=== PATIENT | male | born 1970 | race African-American/Black ===

== ENCOUNTER 2020-02-18 08:30 | Inpatient (IN) | payer MEDICARE ==
[~2020-02-18] VITALS: Ht 175.3 cm; Wt 90.7 kg
[2020-02-18] MEDS ORDERED: SODIUM CHLORIDE 0.9% 1,000 ML IV ONE (08:50)
[2020-02-18] MEDS ORDERED: VANCOMYCIN 1 G PREMIX 200 ML IV SCH (10:00)
[2020-02-18] MEDS ORDERED: CEFTRIAXONE 2 G PREMIX 50 ML IV ONE (10:00)
[2020-02-18 10:01] LABS: PROTHROMBIN TIME 31.8 sec (9.6-11.0)
[2020-02-18 10:57] LABS: CLARITY URINE CLEAR (CLEAR); COLOR URINE YELLOW (YELLOW); KETONES URINE NEGATIVE (NEGATIVE); LEUKOCYTE ESTERASE URINE NEGATIVE (NEGATIVE); NITRITE URINE NEGATIVE (NEGATIVE); OCCULT BLOOD URINE 1+ (NEGATIVE); PH URINE 6.5 (4.5-8.0); PROTEIN URINE NEGATIVE (NEGATIVE); SPECIFIC GRAVITY URINE 1.013 (1.005-1.030)
[2020-02-18 11:11] LABS: *BARBITURATES SCREEN URINE NEGATIVE (NEGATIVE); *BENZODIAZEPINES SCREEN URINE PRESUMTIVE POSITIVE (NEGATIVE); PHENCYCLIDINE URINE SCREEN NEGATIVE (NEGATIVE)
[2020-02-18 11:12] LABS: CHLORIDE 107 mEq/L (98-107)
[2020-02-18 11:12] LABS: *AMPHETAMINES SCREEN URINE NEGATIVE (NEGATIVE); *COCAINE SCREEN URINE NEGATIVE (NEGATIVE); CANNABINOID URINE SCREEN NEGATIVE (NEGATIVE); METHADONE URINE SCREEN NEGATIVE (NEGATIVE); OPIATES URINE SCREEN NEGATIVE (NEGATIVE)
[2020-02-18 11:14] LABS: CREATINE KINASE 275 IU/L (39-308); ETHANOL BLOOD < 10 mg/dL
[2020-02-18] MEDS ORDERED: CALCIUM GLUCONATE 100MG/ML 10ML VIAL IV ONE (12:00)
[2020-02-18 12:16] LABS: BASOPHILS % 0.1 % (0.0-2.0); HEMOGLOBIN. 16.1 g/dL (14.0-18.0); LYMPHOCYTES % 7.2 % (20.0-50.0); MEAN CORPUSCULAR HEMOGLOBIN 30.8 pg (28.0-32.0); MEAN CORPUSCULAR VOLUME 91.8 fL (80.0-94.0); MEAN PLATELET VOLUME 9.4 fl (7.4-10.4); MONOCYTES % 9.1 % (2.0-8.0); NEUTROPHILS % 83.6 % (40.0-76.0); PLATELET 224 x1000/uL (130-400); RED BLOOD CELL COUNT 5.23 mill/uL (4.7-6.1)
[2020-02-18] MEDS ORDERED: AZITHROMYCIN 500 MG in DEXT 5% WATER 250 ML IV SCH (14:15)
[2020-02-18] MEDS ORDERED: IPRATROPIUM/ALBUTEROL 0.5-3(2.5)MG/3ML NEB HHN PRN (17:45)
[2020-02-18] MEDS ORDERED: HYDROCODONE/ACETAMINOPHEN 5/325MG TABLET PO PRN (17:45)
[2020-02-18] MEDS ORDERED: CLONIDINE 0.1MG TABLET PO PRN (17:45)
[2020-02-18] MEDS ORDERED: SODIUM CHLORIDE 0.9% 1000ML BAG (SEPSIS BOLUS) IV NR (17:45)
[2020-02-18] MEDS ORDERED: GUAIFENESIN 200MG/10ML SUGAR FREE UDC PO PRN (17:45)
[2020-02-18] MEDS ORDERED: DOCUSATE SODIUM 100MG CAPSULE PO PRN (17:45)
[2020-02-18] MEDS ORDERED: ONDANSETRON HCL 4MG/2ML INJ IV PRN (17:45)
[2020-02-18] MEDS ORDERED: ACETAMINOPHEN 325MG TABLET PO PRN (17:45)
[2020-02-18] MEDS: SODIUM CHLORIDE 0.9% 1,000 ML IV SCH (18:30)
[2020-02-18] MEDS ORDERED: PIPERACILLIN/TAZ 3.375G PREMIX 50 ML IV SCH (18:30)
[2020-02-18 18:38] LABS: BG BASE EXCESS -2.2 mmol/L (-2.0-2.0); BG CARBOXYHEMOGLOBIN 0.4 % (0.5-1.5); BG DEOXYHEMOGLOBIN 4.4 % (0.0-5.0); BG FRACTION INSPIRED OXYGEN 21; BG METHEMOGLOBIN 0.3 % (0.0-1.5); BG OXYGEN SATURATION 95.6 % (92.0-98.5); BG OXYHEMOGLOBIN 94.9 % (94.0-97.0); BG PCO2 32.2 mmHg (35.0-45.0); BG PH 7.433 (7.350-7.450); BG PO2 73.4 mmHg (75.0-100.0); BG SAMPLE SITE LEFT RADIAL; BG TOTAL HEMOGLOBIN 14.6 g/dL (12.0-18.0); BG VENT MODE ROOM AIR
[2020-02-18] MEDS ORDERED: THIAMINE HCL 100 MG in SODIUM CHLORIDE 0.9% 49 ML IV NR (20:00)
[2020-02-18 20:33] LABS: PROTHROMBIN TIME 11.3 sec (9.6-11.0)
[2020-02-18 20:41] LABS: PHOSPHORUS 2.6 mg/dL (2.5-4.9)
[2020-02-18 20:42] LABS: T4 FREE 0.9 ng/dL (0.76-1.46)
[2020-02-18 20:44] LABS: BETA HYDROXYBUTYRATE 0.1 mMol/L (0.0-0.3)
[2020-02-18 21:04] LABS: VITAMIN B12 SERUM 401 pg/mL (211-911)
[2020-02-18 21:13] LABS: HEPATITIS B SURFACE ANTIGEN NEGATIVE
[2020-02-18 21:42] LABS: HEPATITIS A AB IGM NEGATIVE (NEGATIVE)
[2020-02-18] MEDS ORDERED: PIPERACILLIN/TAZOBACTAM 3.375 G/VIAL IV SCH (22:00)
[2020-02-18 23:45] LABS: CHLORIDE 110 mEq/L (98-107)
[2020-02-19] VITALS (13 sets, daily range): BP systolic 108–142; BP diastolic 60–100
[2020-02-19] MEDS: ZOLPIDEM TARTRATE 5MG TABLET PO PRN ×2 (01:30→22:10)
[2020-02-19] MEDS ORDERED: POTASSIUM CHLORIDE 20MEQ TABLET SR PO NR (02:45)
[2020-02-19] MEDS: SODIUM CHLORIDE 0.9% 1,000 ML IV SCH ×2 (03:31→14:06)
[2020-02-19] MEDS ORDERED: IOHEXOL-300 100 ML BOTTLE ONE (05:33)
[2020-02-19] MEDS: PIPERACILLIN/TAZOBACTAM 3.375 G in DEXT 5% WATER 100 ML IV SCH ×3 (05:37→21:00)
[2020-02-19 06:48] LABS: BASOPHILS % 0.2 % (0.0-2.0); EOSINOPHILS % 2.1 % (0.0-5.0); HEMATOCRIT. 39.3 % (42.0-52.0); HEMOGLOBIN. 13.7 g/dL (14.0-18.0); LYMPHOCYTES % 22.8 % (20.0-50.0); MEAN CORPUSCULAR HEMOGLOBIN 31.1 pg (28.0-32.0); MEAN CORPUSCULAR VOLUME 89.5 fL (80.0-94.0); MEAN PLATELET VOLUME 9.6 fl (7.4-10.4); MONOCYTES % 10.9 % (2.0-8.0); PLATELET 235 x1000/uL (130-400); RED BLOOD CELL COUNT 4.39 mill/uL (4.7-6.1); RED CELL DISTRIBUTION WIDTH 14.7 % (11.6-14.6)
[2020-02-19 07:11] LABS: CHLORIDE 108 mEq/L (98-107)
[2020-02-19] MEDS: HEPARIN 5000 UNITS/ML VIAL SUBCUT SCH ×2 (08:19→20:50)
[2020-02-19] MEDS: FAMOTIDINE 20MG TABLET PO SCH (20:50)
[2020-02-20] VITALS (11 sets, daily range): BP systolic 99–158; BP diastolic 63–96
[2020-02-20] MEDS: PIPERACILLIN/TAZOBACTAM 3.375 G in DEXT 5% WATER 100 ML IV SCH ×3 (05:07→22:53)
[2020-02-20 06:31] LABS: BASOPHILS % 0.1 % (0.0-2.0); HEMATOCRIT. 37.6 % (42.0-52.0); LYMPHOCYTES % 29.5 % (20.0-50.0); MEAN CORPUSCULAR HEMOGLOBIN 30.9 pg (28.0-32.0); MEAN CORPUSCULAR VOLUME 89.6 fL (80.0-94.0); MEAN PLATELET VOLUME 9.1 fl (7.4-10.4); NEUTROPHILS % 54.4 % (40.0-76.0); PLATELET 232 x1000/uL (130-400); RED CELL DISTRIBUTION WIDTH 14.5 % (11.6-14.6)
[2020-02-20 06:56] LABS: CHLORIDE 109 mEq/L (98-107)
[2020-02-20] MEDS: FAMOTIDINE 20MG TABLET PO SCH ×2 (08:43→23:20)
[2020-02-20] MEDS: HEPARIN 5000 UNITS/ML VIAL SUBCUT SCH ×2 (08:44→23:10)
[2020-02-20 09:09] LABS: HIV SCREEN 4G Non Reactive (Non Reactive)
[2020-02-20] MEDS: SODIUM CHLORIDE 0.9% 1,000 ML IV SCH ×3 (10:30→23:14)
[2020-02-20] MEDS: ZOLPIDEM TARTRATE 5MG TABLET PO PRN (22:54)
[2020-02-21] VITALS (10 sets, daily range): BP systolic 130–151; BP diastolic 78–103
[2020-02-21] MEDS: PIPERACILLIN/TAZOBACTAM 3.375 G in DEXT 5% WATER 100 ML IV SCH (05:52)
[2020-02-21] MEDS: SODIUM CHLORIDE 0.9% 1,000 ML IV SCH (05:53)
[2020-02-21] MEDS: FAMOTIDINE 20MG TABLET PO SCH (08:19)
[2020-02-21] MEDS: HEPARIN 5000 UNITS/ML VIAL SUBCUT SCH (08:20)
[2020-02-21 13:06] LABS: METHANOL BLOOD Negative % (0.000-0.010)
[2020-02-22 15:06] LABS: ETHYLENE GLYCOL <5 mg/dL (None detected)
== END 2020-02-21 13:53 | disposition home or self-care (01) | DRG 871 ==
LOC: EDBD 08:30 → ER 08:30 → 5EST 14:01 → EDBEDREQSVC 14:08 → ENRESERV 19:28 → CANRESERV 19:28 → EDBEDREQTM 21:28 → EDBEDREQSVC 21:28 → ENRESERV 23:33
PROVIDERS: ADMIT Internal Medicine; ATTEND Internal Medicine
PROC: 4A10X4Z Monitoring of Central Nervous Electrical Activity, External Approach (ICD-10-PCS; principal; 2020-02-20)
DX: A41.9 Sepsis, unspecified organism (principal); G92 Toxic encephalopathy; J69.0 Pneumonitis due to inhalation of food and vomit; D68.9 Coagulation defect, unspecified; E87.2 Acidosis; E87.6 Hypokalemia; E05.90 Thyrotoxicosis, unspecified without thyrotoxic crisis or storm; E83.51 Hypocalcemia; D72.810 Lymphocytopenia; F32.9 Major depressive disorder, single episode, unspecified; F41.9 Anxiety disorder, unspecified; D72.821 Monocytosis (symptomatic); G90.8 Other disorders of autonomic nervous system; T42.4X5A Adverse effect of benzodiazepines, initial encounter; Z03.818 Encounter for observation for suspected exposure to other biological agents ruled out; Z59.0 Homelessness; Z82.0 Family history of epilepsy and other diseases of the nervous system; Y92.89 Other specified places as the place of occurrence of the external cause
CPT/HCPCS: 36415; 36600; 70551; 71045; 74177; 80048; 80053; 80061; 80305; 80307; 80320; 80329; 81003; 82010; 82140; 82310; 82330; 82375; 82550; 82607; 82652; 82693; 82746; 82805; 82962; 83036; 83605; 83735; 83880; 83970; 84100; 84145; 84439; 84443; 84481; 84484; 85025; 86705; 86709; 86803; 87340; 87389; 93005; 95816; 96365; 99291; J0456; J0610; J0696; J1644; J2543; J3370; J3411; J7030; J7060; Q9967; G0480; U0003-CS